=== PATIENT | female | born 2005 | race Caucasian/White ===

== ENCOUNTER 2023-09-19 15:17 | Emergency (ER) | payer OTHER, SELFPAY ==
[2023-09-19 15:36] VITALS: BP 94/63; PULSE 98; RESP 16; TEMP 37.5; O2SAT 91; BMI 16.1
--- OUTSIDE RECORDS SUMMARY | 2023-09-19 17:03 | XMS_ITS | Patient Health Record ---
Author Name Unknown Organization [facility], Address [address] [place] [address] Support Name Relationship Address Phone Marie Mora Guarantor Unknown REASON FOR REFERRAL No Information SOCIAL HISTORY Sex Assigned At : Social History Observation Description Sex Assigned At Unknown PLAN OF TREATMENT No Information Insurance Providers Payer Name Payer Address Payer Phone Subscriber Number Group Number Insured Name Patient Relationship to Insured Coverage Start Date Coverage End Date [employer] [address] [place] [address] [id number] Marie Mora Self - patient is the insured
== END 2023-09-19 17:17 | disposition home or self-care (01) ==
PROVIDERS: Emergency Provider Emergency Medicine
DX: Z53.21 Procedure and treatment not carried out due to patient leaving prior to being seen by health care provider (principal)

== ENCOUNTER 2024-12-18 15:56 | Outpatient (CLI) | payer BC, SELFPAY ==
[2024-12-18 23:04] LABS: Chlamydia DNA Amplified* NOT DETECTED (No Detected); GC DNA Amplified* NOT DETECTED (No Detected)
[2024-12-21 19:56] LABS: HSV 1 Subtype by PCR Not Detected; HSV 2 Subtype by PCR Not Detected; Herpes Simplex Subtype Source Tissue
== END 2024-12-18 15:57 | disposition home or self-care (01) ==
DX: N89.8 Other specified noninflammatory disorders of vagina (principal); K13.0 Diseases of lips; Z11.59 Encounter for screening for other viral diseases
CPT/HCPCS: 86592; 86703; 86706; 86803; 87340; 87491; 87529; 87591